=== PATIENT | female | born 1990 | race Hispanic/Latino ===

== ENCOUNTER → 2017-04-23 | Outpatient (CLI) | payer OTHER ==
[~2017-04-23] MED LIST: ISOVUE-370 76% 100ML VIAL (Q9967) As Ordered ONE
--- NOTE | 2017-04-23 13:54 | REP ---
HYSTEROSALPINGOGRAM: Patient's cervix was catheterized by the referring clinician who injected contrast. I performed fluoroscopy and obtained spot radiographs. The uterus demonstrates no persistent defect or contour abnormality. There is free passage of contrast through both fallopian tubes. The fallopian tubes are normal in caliber. There is free intraperitoneal spillage bilaterally, consistent with bilaterally fallopian tube patency. IMPRESSION: There is bilateral fallopian tube patency. 6 seconds fluoroscopy time utilized. Signed by Guy Moreno MD 04/23/2017 02:28 P
== END ==
LOC: M RADPRO 11:47
PROVIDERS: ATTEND Obstetrics & Gynecology
DX: N97.8 Female infertility of other origin (principal)
CPT/HCPCS: 58340; 74740; Q9967